=== PATIENT | female | born 1985 | race Asian ===

== ENCOUNTER 2016-12-24 06:01 | Emergency (ER) | payer SELFPAY ==
[~2016-12-24] VITALS: Ht 149.9 cm; Wt 54.4 kg
[2016-12-24 06:27] VITALS: BP 104/62
--- NOTE | 2016-12-24 07:13 | ED.ADGEN ---
Past Medical History Past Medical History: No Pertinent History Past Surgical History: No Surgical History Alcohol Use: None Drug Use: None Adult General Chief Complaint Chief Complaint: DIARRHEA HPI HPI Patient is a 31 year old woman, G 11, P9, 17 weeks who presents to the emergency department with a complaint of loose stool, and abdominal cramping for the past 12 hours. Patient states that she ate at a [employer] restaurant last night with a large group, and afterwards developed abdominal cramping, located in her upper and middle abdomen, denies any lower abdominal cramping, any discharge or drainage, any bleeding or fluid loss. She states this time she is expressing very mild abdominal cramping, states that she's had 2 loose stools, brown in color, with no blood, since this began. Denies any vomiting, complains of mild nausea. No injuries, no known sick contacts or exposures. Review of Systems Review of Systems Constitutional: Denies fever or chills. [] Eyes: Denies change in visual acuity. [] HENT: Denies nasal congestion or sore throat. [] Respiratory: Denies cough or shortness of breath. [] Cardiovascular: Denies chest pain or edema. [] GI: Abdominal cramping, nausea, diarrhea, no bloody stools or bloody emesis. : Denies dysuria. [] Musculoskeletal: Denies back pain or joint pain. [] Integument: Denies rash. [] Neurologic: Denies headache, focal weakness or sensory changes. [] Endocrine: Denies polyuria or polydipsia. [] Lymphatic: Denies swollen glands. [] Psychiatric: Denies depression or anxiety. [] Current Medications Current Medications Current Medications Medications (Trade) Dose Ordered Sig/Dai Start Time Stop Time Status Last Admin Dose Admin Cephalexin HCl (Keflex) 500 mg 1X ONCE 12/24/16 09:30 12/24/16 09:34 DC 12/24/16 09:45 500 MG Sodium Chloride (Iv Sodium Chloride 0.9% 1000ml Bag) 1,000 ml @ 1,000 mls/hr 1X ONCE 12/24/16 09:30 12/24/16 10:29 DC 12/24/16 09:23 1,000 MLS/HR Allergies Allergies Allergies Coded Allergies Type Severity Reaction Last Updated Verified No Known Drug Allergies 11/18/14 No Physical Exam Physical Exam Constitutional: Well developed, well nourished, no acute distress, non-toxic appearance. [] HENT: Normocephalic, atraumatic, bilateral external ears normal, oropharynx moist, no oral exudates, nose normal. [] Eyes: PERRLA, EOMI, conjunctiva normal, no discharge. [] Neck: Normal range of motion, no tenderness, supple, no stridor. [] Cardiovascular:Heart rate regular rhythm, no murmur, S1, S2, rubs or gallops. [] Lungs & Thorax: Bilateral breath sounds clear to auscultation, no wheezing, rhonchi, rales. No chest tenderness or crepitus. [] Abdomen: Bowel sounds normal, soft, mild initial patient in the epigastric region, no rebound, rigidity, no guarding, no tenderness to palpation in the suprapubic or lower quadrant region, no pelvic tenderness, no masses, no pulsatile masses. [] Skin: Warm, dry, no erythema, no rash. [] Back: No tenderness, no CVA tenderness. [] Extremities: No tenderness, no cyanosis, no clubbing, ROM intact, no edema. [] Neurologic: Alert and oriented X 3, normal motor function, normal sensory function, no focal deficits noted. [] Psychologic: Affect normal, judgement normal, mood normal. [] Current Patient Data Vital Signs Vital Signs Date Time Temp Pulse Resp B/P Pulse Ox O2 Delivery O2 Flow Rate FiO2 12/24/16 06:27 98.4 78 16 104/62 98 Room Air 98.4 Lab Values Laboratory Tests Test 12/24/16 06:25 12/24/16 06:58 Urine Collection Type Unknown Urine Color [place]illa Urine Clarity Clear Urine pH 6.5 Urine Specific [place] 1.025 Urine Protein Negativemg/dL (NEG-TRACE) Urine Glucose (UA) Negativemg/dL (NEG) Urine Ketones (Stick) 15mg/dL (NEG) Urine Blood Negative (NEG) Urine Nitrite Negative (NEG) Urine Bilirubin Negative (NEG) Urine Urobilinogen Dipstick 1.0mg/dL (0.2 mg/dL) Urine Leukocyte Esterase Small (NEG) Urine RBC 0/HPF (0-2) Urine WBC 5-10/HPF (0-4) Urine Squamous Epithelial Cells Occ/LPF Urine Bacteria Many/HPF (0-FEW) Urine Mucus Marked/LPF White Blood Count 11.5x10^3/uL (4.0-11.0) H Red Blood Count 3.95x10^6/uL (3.50-5.40) Hemoglobin 12.0g/dL (12.0-15.5) Hematocrit 36.2% (36.0-47.0) Mean Corpuscular Volume 92fL (79-100) Mean Corpuscular Hemoglobin 30pg (25-35) Mean Corpuscular Hemoglobin Concent 33g/dL (31-37) Red Cell Distribution Width 13.5% (11.5-14.5) Platelet Count 202x10^3/uL (140-400) Neutrophils (%) (Auto) 76% (31-73) H Lymphocytes (%) (Auto) 18% (24-48) L Monocytes (%) (Auto) 5% (0-9) Eosinophils (%) (Auto) 1% (0-3) Basophils (%) (Auto) 0% (0-3) Neutrophils # (Auto) 8.7x10^3uL (1.8-7.7) H Lymphocytes # (Auto) 2.1x10^3/uL (1.0-4.8) Monocytes # (Auto) 0.6x10^3/uL (0.0-1.1) Eosinophils # (Auto) 0.1x10^3/uL (0.0-0.7) Basophils # (Auto) 0.0x10^3/uL (0.0-0.2) Sodium Level 140mmol/L (136-145) Potassium Level 3.5mmol/L (3.5-5.1) Chloride Level 104mmol/L (98-107) Carbon Dioxide Level 26mmol/L (21-32) Anion Gap 10 (6-14) Blood Urea Nitrogen 8mg/dL (7-20) Creatinine 0.6mg/dL (0.6-1.0) Estimated GFR (Cockcroft-Gault) 115.1 BUN/Creatinine Ratio 13 (6-20) Glucose Level 93mg/dL (70-99) Calcium Level 8.8mg/dL (8.5-10.1) Total Bilirubin 0.4mg/dL (0.2-1.0) Aspartate Amino Transferase (AST) 22U/L (15-37) Alanine Aminotransferase (ALT) 22U/L (14-59) Alkaline Phosphatase 52U/L (46-116) Total Protein 7.0g/dL (6.4-8.2) Albumin 2.9g/dL (3.4-5.0) L Albumin/Globulin Ratio 0.7 (1.0-1.7) L Lipase 93U/L (73-393) Influenza Type A Antigen Negative (NEGATIVE) Influenza Type B Antigen Negative (NEGATIVE) Laboratory Tests 12/24/16 06:58 Laboratory Tests 12/24/16 06:58 EKG EKG Not indicated. [] Radiology/Procedures Radiology/Procedures heart tones: 151 [] Course & Med Decision Making Course & Med Decision Making Pertinent Labs and Imaging studies reviewed. (See chart for details) Patient's abdominal pain is located in her upper and mid abdominal region, no lower quadrant or pelvic cramping or discomfort. She has had 2 episodes of loose stool. Discussed with her that this may be due to food or viral exposure, we'll check flu swabs, electrolytes, provide IV fluids, and urinalysis. No dictation for imaging of the fetus at this time, as patient's pain is located in the upper abdomen, she is not experiencing any quadrant symptoms or complaints, heart tones are noted to be in the 150s as stated. Patient is agreeable to this plan at this time. She follows with her primary care provider , Dr. Mcmanus. She is currently taking vitamins. She states she is in the process of obtaining an ASSOCIATE PROFESSOR OF BIOLOGY at this time. Patient also complained of mild lightheadedness, although none currently, and some sore throats currently resolved as well. Patient received IV fluids, laboratory studies, which revealed no evidence of acute abnormalities. On reevaluation states she is feeling better, has had no recurrence of the diarrhea, and cramping is resolved. Patient was ambulated in the emergency department, and Antivert trial performed without issue. Noted to have evidence of bacteria in her urine, trace ketones, as stated I fluids were given, patient also received oral Keflex which she took in the ED without issue. I did discuss these findings as above with patient, importance of stay well-hydrated, plenty of rest, treating urinary tract infection, and establishing care with an ASSOCIATE PROFESSOR OF BIOLOGY. Patient started follow- up with her ASSOCIATE PROFESSOR OF BIOLOGY in the next 7 days, to use Keflex as directed for 7 days, and to return to the ED for concerning symptoms as discussed. Patient and at bedside voice understanding and agreement. Patient discharged home in stable condition with plan as above. Dragon Disclaimer Dragon Disclaimer This electronic medical record was generated, in whole or in part, using a voice recognition dictation system. Departure Impression: Primary Impression: Urinary tract infection Additional Impression: Ketonuria Disposition: HOME, SELF-CARE Condition: IMPROVED Scripts Cephalexin (Keflex)500 Mg Capsule1 Cap PO BID #13 CAP One tablet by mouth twice daily for the next 7 days to treat infection. First dose given in the emergency department. Prov:ALEXI HICKS DO 12/24/16 Problem Qualifiers ALEXI HICKS DO Dec 24, 2016 07:13
[2016-12-24] MEDS ORDERED: IV NORMAL SALINE 1000ML BAG 1,000 ML IV ONE ×2 (07:15→09:30)
[2016-12-24 07:22] LABS: BASO % 0 % (0-3); EOS % 1 % (0-3); HEMATOCRIT 36.2 % (36.0-47.0); LYMPH # 2.1 x10^3/uL (1.0-4.8); LYMPH % 18 % (24-48); MEAN CORPUSCULAR HEMOGLOBIN 30 pg (25-35); MEAN CORPUSCULAR HGB CONC 33 g/dL (31-37); MEAN CORPUSCULAR VOLUME 92 fL (79-100); MONO % 5 % (0-9); NEUT % 76 % (31-73); PLATELET COUNT 202 x10^3/uL (140-400); RED BLOOD COUNT 3.95 x10^6/uL (3.50-5.40); RED CELL DISTRIBUTION WIDTH 13.5 % (11.5-14.5); WHITE BLOOD COUNT 11.5 x10^3/uL (4.0-11.0)
[2016-12-24 07:30] LABS: CALCIUM 8.8 mg/dL (8.5-10.1); CREATININE 0.6 mg/dL (0.6-1.0); GFR 115.1; POTASSIUM 3.5 mmol/L (3.5-5.1)
[2016-12-24 07:31] LABS: OBC FLU VALID
[2016-12-24 07:36] LABS: ALBUMIN 2.9 g/dL (3.4-5.0); ALBUMIN/GLOBULIN RATIO 0.7 (1.0-1.7); TOTAL BILIRUBIN 0.4 mg/dL (0.2-1.0)
[2016-12-24 08:43] LABS: BILIRUBIN,URINE NEGATIVE (NEG); GLUCOSE,URINE NEGATIVE (NEG); NITRITE,URINE NEGATIVE (NEG); PH,URINE 6.5; PROTEIN,URINE NEGATIVE (NEG-TRACE)
[2016-12-24 08:55] LABS: BACTERIA,URINE MANY /HPF (0-FEW); RBC,URINE 0 /HPF (0-2); SQUAMOUS EPITHELIAL CELL,UR OCC /LPF
[2016-12-24] MEDS ORDERED: CEPHALEXIN 250 MG CAPSULE. PO ONE (09:30)
[2016-12-24] MEDS ORDERED: CEPH-264 PO (10:45)
== END 2016-12-24 11:06 | disposition home or self-care (01) ==
LOC: ER 06:01
DX: O23.42 Unspecified infection of urinary tract in pregnancy, second trimester (principal); O26.892 Other specified pregnancy related conditions, second trimester; R82.4 Acetonuria; R19.7 Diarrhea, unspecified; R42 Dizziness and giddiness; Z3A.17 17 weeks gestation of pregnancy
CPT/HCPCS: 36415; 80053; 81001; 83690; 85027; 87086; 87804; 96360; 96361; 99285; J7030

== ENCOUNTER 2018-10-11 18:49 | Emergency (ER) | payer SELFPAY ==
[~2018-10-11] VITALS: Ht 152.4 cm; Wt 46.3 kg
[~2018-10-11 18:49] MED LIST: CEPH-264 PO
[2018-10-11] MEDS ORDERED: IV NORMAL SALINE 1000ML BAG 1,000 ML IV ONE (20:00)
[2018-10-11 20:01] LABS: BILIRUBIN,URINE NEGATIVE (NEG); CLARITY,URINE CLEAR; COLOR,URINE YELLOW; NITRITE,URINE NEGATIVE (NEG); PH,URINE 6.5; PROTEIN,URINE NEGATIVE (NEG-TRACE); UROBILINOGEN,URINE 0.2 mg/dL (0.2 mg/dL)
--- NOTE | 2018-10-11 20:06 | PHYS DOC ---
Past Medical History Past Medical History: No Pertinent History (TORRIE GRAYSON APRN) Past Surgical History: No Surgical History (TORRIE GRAYSON APRN) Alcohol Use: None Drug Use: None (TORRIE GRAYSON APRN) Adult General Chief Complaint Chief Complaint: DIZZY/LIGHT HEADED HPI HPI Patient is a 33 year old female who presents with states about once a year this usually happens. She states that today she was feeding her baby and began suddenly having a time breathing and she is going to faint. Patient states this is just one episode that happened just today. Patient states she's had an episode like this last year and they told her that it was a panic attack or anxiety. (TORRIE GRAYSON APRN) Review of Systems Review of Systems Constitutional: Denies fever or chills [] Eyes: Denies change in visual acuity, redness, or eye pain [] HENT: Denies nasal congestion or sore throat [] Respiratory: Denies cough or shortness of breath [] Cardiovascular: No additional information not addressed in HPI [] GI: Denies abdominal pain, nausea, vomiting, bloody stools or diarrhea [] : Denies dysuria or hematuria [] Musculoskeletal: Denies back pain or joint pain [] Integument: Denies rash or skin lesions [] Neurologic: Dizziness. Denies headache, focal weakness or sensory changes [] All other systems were reviewed and found to be within normal limits, except as documented in this note. (TORRIE GRAYSON APRN) Current Medications Current Medications Current Medications Medications (Trade) Dose Ordered Sig/[facility] Start Time Stop Time Status Last Admin Dose Admin Sodium Chloride 1,000 ml @ 1,000 mls/hr 1X ONCE 10/11/18 20:00 10/11/18 20:59 DC 10/11/18 20:56 1,000 MLS/HR (ALYSON KIM DO) Allergies Allergies Allergies Coded Allergies Type Severity Reaction Last Updated Verified No Known Drug Allergies 11/18/14 No (ALYSON KIM DO) Physical Exam Physical Exam Constitutional: Well developed, well nourished, no acute distress, non-toxic appearance. [] HENT: Normocephalic, atraumatic, bilateral external ears normal, oropharynx moist, no oral exudates, nose normal. [] Eyes: PERRLA, EOMI, conjunctiva normal, no discharge. [] Neck: Normal range of motion, no tenderness, supple, no stridor. [] Cardiovascular:Heart rate regular rhythm, no murmur [] Lungs & Thorax: Bilateral breath sounds clear to auscultation [] Abdomen: Bowel sounds normal, soft, no tenderness, no masses, no pulsatile masses. [] Skin: Warm, dry, no erythema, no rash. [] Back: No tenderness, no CVA tenderness. [] Extremities: No tenderness, no cyanosis, no clubbing, ROM intact, no edema. [] Neurologic: Alert and oriented X 3, normal motor function, normal sensory function, no focal deficits noted. [] Psychologic: Affect normal, judgement normal, mood normal. [] (TORRIE GRAYSON APRN) Current Patient Data Vital Signs Vital Signs Date Time Temp Pulse Resp B/P (MAP) Pulse Ox O2 Delivery O2 Flow Rate FiO2 10/11/18 20:52 94 98 10/11/18 19:47 98.7 18 111/70 (84) Room Air 98.7 (KIM,ALYSON R DO) Lab Values Laboratory Tests Test 10/11/18 19:45 10/11/18 19:54 10/11/18 19:55 Urine Collection Type Unknown Urine Color Yellow Urine Clarity Clear Urine pH 6.5 Urine Specific [place] <=1.005 Urine Protein Negative mg/dL (NEG-TRACE) Urine Glucose (UA) Negative mg/dL (NEG) Urine Ketones (Stick) Negative mg/dL (NEG) Urine Blood Negative (NEG) Urine Nitrite Negative (NEG) Urine Bilirubin Negative (NEG) Urine Urobilinogen Dipstick 0.2 mg/dL (0.2 mg/dL) Urine Leukocyte Esterase Small (NEG) Urine RBC 0 /HPF (0-2) Urine WBC 5-10 /HPF (0-4) Urine Squamous Epithelial Cells Mod /LPF Urine Bacteria Moderate /HPF (0-FEW) POC Urine HCG, Qualitative Hcg negative (Negative) White Blood Count 6.3 x10^3/uL (4.0-11.0) Red Blood Count 4.63 x10^6/uL (3.50-5.40) Hemoglobin 13.8 g/dL (12.0-15.5) Hematocrit 41.5 % (36.0-47.0) Mean Corpuscular Volume 90 fL (79-100) Mean Corpuscular Hemoglobin 30 pg (25-35) Mean Corpuscular Hemoglobin Concent 33 g/dL (31-37) Red Cell Distribution Width 11.7 % (11.5-14.5) Platelet Count 211 x10^3/uL (140-400) Neutrophils (%) (Auto) 52 % (31-73) Lymphocytes (%) (Auto) 35 % (24-48) Monocytes (%) (Auto) 10 % (0-9) H Eosinophils (%) (Auto) 2 % (0-3) Basophils (%) (Auto) 1 % (0-3) Neutrophils # (Auto) 3.3 x10^3uL (1.8-7.7) Lymphocytes # (Auto) 2.2 x10^3/uL (1.0-4.8) Monocytes # (Auto) 0.6 x10^3/uL (0.0-1.1) Eosinophils # (Auto) 0.1 x10^3/uL (0.0-0.7) Basophils # (Auto) 0.0 x10^3/uL (0.0-0.2) Sodium Level 141 mmol/L (136-145) Potassium Level 3.3 mmol/L (3.5-5.1) L Chloride Level 104 mmol/L (98-107) Carbon Dioxide Level 28 mmol/L (21-32) Anion Gap 9 (6-14) Blood Urea Nitrogen 11 mg/dL (7-20) Creatinine 0.6 mg/dL (0.6-1.0) Estimated GFR (Cockcroft-Gault) 113.8 BUN/Creatinine Ratio 18 (6-20) Glucose Level 97 mg/dL (70-99) Calcium Level 9.3 mg/dL (8.5-10.1) Total Bilirubin 0.9 mg/dL (0.2-1.0) Aspartate Amino Transferase (AST) 22 U/L (15-37) Alanine Aminotransferase (ALT) 30 U/L (14-59) Alkaline Phosphatase 66 U/L (46-116) Total Protein 7.6 g/dL (6.4-8.2) Albumin 3.7 g/dL (3.4-5.0) Albumin/Globulin Ratio 0.9 (1.0-1.7) L Laboratory Tests 10/11/18 19:55 Laboratory Tests 10/11/18 19:55 (ALYSON KIM DO) EKG EKG Sinus Rhythm and no STEMI Interpretation Time: [address] Kim (TORRIE GRAYSON APRN) Radiology/Procedures Radiology/Procedures CT head and chest (TORRIE GRAYSON APRN) Impressions: [facility] [address] [place] [address] IMAGING REPORT Signed PATIENT: TIFFANIE RENTERIA ACCOUNT: [id number] : 1985 LOCATION: ER AGE: 33 SEX: F EXAM STATUS: REG ER ORD. PHYSICIAN: TORRIE GRAYSON APRN REASON: dizziness, near syncope PROCEDURE: CT HEAD WO CONTRAST PQRS Compliance Statement: One or more of the following individualized dose reduction techniques were utilized for this examination: 1. Automated exposure control 2. Adjustment of the mA and/or kV according to patient size 3. Use of iterative reconstruction technique CT head without contrast 10/11/2018 7:56 PM INDICATION: Dizziness, near syncope COMPARISON: None available TECHNIQUE: Multiple axial CT images of the head were obtained from skull base through the vertex without intravenous contrast. FINDINGS: Head: Ventricles, sulci and basal cisterns are within normal limits. There is no hydrocephalus. Perry-white matter differentiation is normal. There is no acute intracranial hemorrhage. There is no mass, mass effect or midline shift. Posterior fossa is normal in appearance. Visualized portions of the orbits are normal. Paranasal sinuses are well aerated. Mastoid air cells are well aerated. Scalp and calvaria are normal. IMPRESSION: No acute intracranial hemorrhage. Electronically signed by: Emilie Anthony MD (10/11/2018 8:58 PM) [facility] DICTATED and SIGNED BY: EMILIE ANTHONY MD DATE: 10/11/182054 (TORRIE GRAYSON APRN) Course & Med Decision Making Course & Med Decision Making Patient is a 33 year old female who presents with states about once a year this usually happens. She states that today she was feeding her baby and began suddenly having a time breathing and she is going to faint. Patient states this is just one episode that happened just today. Patient states she's had an episode like this last year and they told her that it was a panic attack or anxiety. Alert and oriented. PERRLA. Neurologically intact. Walks with a steady gait. Speaks in full clear sentences. Denies any pain. Patient states that she' s scared because her mom had aneurysm is worried she has an aneurysm. Patient denies any visual changes. Patient denies headache, nausea, vomiting or diarrhea , fever, neck pain or stiffness. Patient has full range of motion in her neck. Patient has no focal weaknesses or numbness and tingling. He shouldn't has no extremity swelling or calf pain or pain with breathing. Patient currently states that she only feels slightly dizzy but is feeling better than she was. Patient states she is no longer feeling short of air. Skin is pink warm and dry. Mucous membranes are moist. Patient states she is eating and drinking. Patient denies any previous illness. CT HEAD shows no acute findings. Chest xray shows no acute findings. Patient needs to follow up with primary care next week. (TORRIE GRAYSON APRN) Dragon Disclaimer Dragon Disclaimer This electronic medical record was generated, in whole or in part, using a voice recognition dictation system. (TORRIE GRAYSON APRN) Departure Departure Impression: Primary Impression: Dizziness Additional Impressions: Panic attack Urinary tract infection Disposition: HOME, SELF-CARE Condition: STABLE Referrals: NO PCP (PCP) Patient Instructions: Anxiety and Panic Attacks, Urinary Tract Infection Additional Instructions: Follow-up primary care doctor next week. Take Medication as prescribed. Scripts Cephalexin (KEFLEX) 500 Mg Capsule 1 CAP PO BID for 5 Days, #10 CAP Prov: TORRIE GRAYSON APRN 10/11/18 Attending Signature Attending Signature I have reviewed the PA/DIE MAINTENANCE TECHNICIAN's note and plan of care. I was available for consultation as needed during the patient's visit in the emergency department. I agree with the clinical impression, plan, and disposition. (ALYSON KIM DO) Problem Qualifiers Additional Impressions: Urinary tract infection Urinary tract infection type: site unspecified Hematuria presence: without hematuria Qualified Codes: N39.0 - Urinary tract infection, site not specified TORRIE GRAYSON APRN Oct 11, 2018 20:06 ALYSON KIM DO Oct 11, 2018 22:26
[2018-10-11 20:09] LABS: BACTERIA,URINE MODERATE /HPF (0-FEW); RBC,URINE 0 /HPF (0-2); SQUAMOUS EPITHELIAL CELL,UR MOD /LPF
[2018-10-11 20:19] LABS: BASO % 1 % (0-3); EOS # 0.1 x10^3/uL (0.0-0.7); EOS % 2 % (0-3); HEMATOCRIT 41.5 % (36.0-47.0); HEMOGLOBIN 13.8 g/dL (12.0-15.5); LYMPH # 2.2 x10^3/uL (1.0-4.8); LYMPH % 35 % (24-48); MEAN CORPUSCULAR HEMOGLOBIN 30 pg (25-35); MEAN CORPUSCULAR HGB CONC 33 g/dL (31-37); MEAN CORPUSCULAR VOLUME 90 fL (79-100); MONO # 0.6 x10^3/uL (0.0-1.1); MONO % 10 % (0-9); NEUT # 3.3 x10^3uL (1.8-7.7); NEUT % 52 % (31-73); PLATELET COUNT 211 x10^3/uL (140-400); RED BLOOD COUNT 4.63 x10^6/uL (3.50-5.40); RED CELL DISTRIBUTION WIDTH 11.7 % (11.5-14.5); WHITE BLOOD COUNT 6.3 x10^3/uL (4.0-11.0)
[2018-10-11 20:25] LABS: CALCIUM 9.3 mg/dL (8.5-10.1); CREATININE 0.6 mg/dL (0.6-1.0); GFR 113.8; POTASSIUM 3.3 mmol/L (3.5-5.1)
[2018-10-11 20:33] LABS: ALBUMIN 3.7 g/dL (3.4-5.0); ALBUMIN/GLOBULIN RATIO 0.9 (1.0-1.7); TOTAL BILIRUBIN 0.9 mg/dL (0.2-1.0); TOTAL PROTEIN 7.6 g/dL (6.4-8.2)
[2018-10-11 20:52] VITALS: BP 110/71
--- NOTE | 2018-10-11 21:02 | RAD ---
RS Compliance Statement: One or more of the following individualized dose reduction techniques were utilized for this examination: 1. Automated exposure control 2. Adjustment of the mA and/or kV according to patient size 3. Use of iterative reconstruction technique CT head without contrast 10/11/2018 7:56 PM INDICATION: Dizziness, near syncope COMPARISON: None available TECHNIQUE: Multiple axial CT images of the head were obtained from skull base through the vertex without intravenous contrast. FINDINGS: Head: Ventricles, sulci and basal cisterns are within normal limits. There is no hydrocephalus. Perry-white matter differentiation is normal. There is no acute intracranial hemorrhage. There is no mass, mass effect or midline shift. Posterior fossa is normal in appearance. Visualized portions of the orbits are normal. Paranasal sinuses are well aerated. Mastoid air cells are well aerated. Scalp and calvaria are normal. IMPRESSION: No acute intracranial hemorrhage. Electronically signed by: Dania Blankenship MD (10/11/2018 8:58 PM) [facility]
[2018-10-11] MEDS ORDERED: CEPH-264 PO (21:30)
--- NOTE | 2018-10-11 23:21 | RAD ---
Chest radiograph 10/11/2018 8:36 PM INDICATION: Shortness of air COMPARISON: None available TECHNIQUE: Frontal and lateral views of the chest are provided. FINDINGS: The cardiomediastinal silhouette is within normal limits. There are no pleural effusions. There is no pulmonary vascular congestion. There is no pneumothorax. The lungs are clear. No significant osseous abnormality is identified. IMPRESSION: No acute cardiopulmonary process. Electronically signed by: Dania Blankenshpi MD (10/11/2018 11:16 PM) [facility]
--- NOTE | 2018-10-13 10:30 | EKG ---
[facility] [address] [place] [address] Test Date: 2018-10-11 Test Time: 20:28:12 Pat Name: TIFFANIE RENTERIA Department: Room: Gender: F [employer]: : 1985 Requested By: TORRIE GRAYSON Order Number: [id number] Reading MD: Measurements Intervals [place] Rate: 95 P: 43 FL: 104 QRS: 31 QRSD: 86 T: 33 QT: 340 QTc: 430 Interpretive Statements SINUS RHYTHM R-S TRANSITION ZONE IN V LEADS DISPLACED TO THE RIGHT QRS(T) CONTOUR ABNORMALITY CONSIDER ANTEROLATERAL MYOCARDIAL DAMAGE CONSIDER INFERIOR MYOCARDIAL DAMAGE POSSIBLY ABNORMAL ECG RI6.01 No previous ECG available for comparison
== END 2018-10-11 21:39 | disposition home or self-care (01) ==
LOC: ER 18:49
DX: N39.0 Urinary tract infection, site not specified (principal); R42 Dizziness and giddiness; F41.0 Panic disorder [episodic paroxysmal anxiety]
CPT/HCPCS: 36415; 70450; 71046; 80053; 81001; 81025; 85025; 87086; 93005; 96360; 99284; J7030